=== PATIENT | male | born 1955 | race African-American/Black ===

== ENCOUNTER 2024-07-29 09:35 | Inpatient (IN) | payer OTHER ==
[2024-07-28 20:00] VITALS: PULSE 101; RESP 20; O2SAT 94
[2024-07-29] VITALS (8 sets, daily range): BP systolic 132–136; BP diastolic 73; PULSE 78–105; RESP 16–20; TEMP 98.1–98.3; O2SAT 94–100
[~2024-07-29] VITALS: Ht 172.7 cm; Wt 102.3 kg
--- NOTE | 2024-07-29 09:49 | ECG ---
[facility] Test Date: 2024-07-29 Test Time: 09:46:07 Pat Name: JOHANN ATKINSON Department: ER Room: 0245T Gender: M Internal Communications Specialist: CATARINO : 1955 Requested By: BEN PRINCE Order Number: [id number] Reading MD: Neil Deshpande Measurements Intervals Monitor Rate: 103 P: 91 NM: 172 QRS: 259 QRSD: 95 T: 46 QT: 368 QTc: 482 Interpretive Statements Sinus tachycardia Atrial premature complexes Probable left atrial enlargement LAD, consider left anterior fascicular block RSR' in V1 or V2, right VCD or RVH Borderline prolonged QT interval Electronically Signed On 08-03-2024 17:04:21 PST by Neil Deshpande Please click the below link to view image of tracing.
--- NOTE | 2024-07-29 09:58 | ED.PDOC ---
SOB-HPI HPI Comments 69-year-old male presents with a chief complaint of SOB x 2 days with associated weakness. Patient states that he has been feeling increasingly SOB for the past 2 days and states that he really feels like he cannot breathe when attempting to walk, even short distances. Patient mentions that his sister in law was sick x 1 week ago and believes that he may be becoming sick as well. Patient denies any chest pain at this time. Patient has an inhaler, but denies any relief from it. No other symptoms or modifying factors present at this time. Chief Complaint: Shortness of Breath Time Seen by MD: 09:50 Primary Care Provider: LUIS MANUEL Reviewed notes: Medications, Allergies Information Source: Patient Mode of Arrival: Ambulatory Severity: Moderate Timing: Days Duration: Since onset Context: At Rest, With Light Exertion PE Risk Factors: None History of: None Prehospital treatment: None Modifying Factors: Inhaler Past Medical History PAST MEDICAL HISTORY: Denies Surgical History: Denies all surgeries Family History Family History: Reviewed,noncontributory to illness Social History Smoker: Non-Smoker Alcohol: Denies ETOH Use Drugs: Denies Drug Use Lives In: Home Constitutional: denies: chills, diaphoresis, fatigue, fever, malaise, sweats, weakness, others EENTM: denies: blurred vision, double vision, ear bleeding, ear discharge, ear drainage, ear pain, ear ringing, eye pain, eye redness, hearing loss, mouth pain, mouth swelling, nasal discharge, nose bleeding, nose congestion, nose pain, photophobia, tearing, throat pain, throat swelling, voice changes, others Respiratory: reports: shortness of breath, SOB with excertion; denies: cough, hemoptysis, orthopnea, SOB at rest, stridor, wheezing, others Cardiovascular: denies: chest pain, dizzy spells, diaphoresis, Dyspnea on exertion, edema, irregular heart beat, left arm pain, lightheadedness, palpitations, PND, syncope, others Gastrointestinal: denies: abdomen distended, abdominal pain, blood streaked bowels, constipated, diarrhea, dysphagia, difficulty swallowing, hematemesis, melena, nausea, poor appetite, poor fluid intake, rectal bleeding, rectal pain, vomiting, others Genitourinary: denies: burning, dysuria, flank pain, frequency, hematuria, incontinence, penile discharge, penile sore, pain, testicle pain, testicle swelling, urgency, others Neurological: denies: dizziness, fainting, headache, left sided numbness, left sided weakness, numbness, paresthesia, pre-existing deficit, right sided numbness, right sided weakness, seizure, speech problems, tingling, tremors, weakness, others Musculoskeletal: denies: back pain, gout, joint pain, joint swelling, muscle pain, muscle stiffness, neck pain, others Integumetry: denies: bruises, change in color, change in hair/nails, dryness, laceration, lesions, lumps, rash, wounds, others Allergic/Immunocompromised: denies: Difficulty Healing, Frequent Infections, Hives, Itching, others Hematologic/Lymphatic: denies: anemia, blood clots, easy bleeding, easy bruising, swollen glands, others Endocrine: denies: excessive hunger, excessive sweating, excessive thirst, excessive urination, flushing, intolerance to cold, intolerance to heat, unexplained weight gain, unexplained weight loss, others Psychiatric: denies: anxiety, bipolar disorder, depression, hopeless, panic disorder, schizophrenia, sleepless, suicidal, others All Other Systems: Reviewed and Negative Physical Exam General Appearance: Mild Distress, Normal HEENT: Normal ENT Inspection, Pharynx Normal, TMs Normal Neck: Full Range of Motion, Non-Tender, Normal, Normal Inspection Respiratory: Chest Non-Tender, Lungs Clear, No Accessory Muscle Use, No Respiratory Distress, Normal Breath Sounds Cardiovascular: No Edema, No JVD, No Murmur, No Gallop, Normal Peripheral Pulses, Regular Rate/Rhythm Breast Exam: Deferred Gastrointestinal: No Organomegaly, Non Tender, No Pulsatile Mass, Normal Bowel Sounds, Soft Genitalia: Deferred Pelvic: Deferred Rectal: Deferred Extremities: No calf tenderness, Normal capillary refill, Normal inspection, Normal range of motion, Non-tender, No pedal edema Musculoskeletal : Apperance: Normal Neurologic: Alert, creative services specialist II-XII nml as Tested, No Motor Deficits, Normal Affect, Normal Mood, No Sensory Deficits Cerebellar Function: Normal Reflexes: Normal Skin: Dry, Normal Color, Warm Lymphatic: No Adenopathy Was a procedure done? Was a procedure done?: No Differential Dx Differential Diagnosis: Bronchitis, Cardiogenic Shock, CHF, COPD, Pneumonia, Sinusitis, URI X-Ray, Labs, Meds, VS Vital Signs Date Time Temp Pulse Resp B/P (MAP) Pulse Ox O2 Delivery O2 Flow Rate FiO2 07/29/24 10:30 102 07/29/24 10:27 105 16 94 Room Air* 0 21 07/29/24 10:18 22 95 Room Air* 0 21 21 07/29/24 10:05 97.5 110 22 140/95 (110) 89 97.5 07/29/24 09:46 103 07/29/24 09:43 97.6 108 16 173/98 (123) 94 Lab Test 07/29/24 10:13 Range/Units White Blood Count 7.5 4.4-10.8 10^3/uL Red Blood Count 4.99 4.5-5.90 10^6/uL Hemoglobin 14.8 13.5-17.5 g/dL Hematocrit 45.6 41.0-53.0 % Mean Corpuscular Volume 91.3 80.0-100.0 fL Mean Corpuscular Hemoglobin 29.6 28.0-32.0 pg Mean Corpuscular Hemoglobin Concent 32.4 32.0-36.0 g/dL Red Cell Distribution Width 14.5 H 11.8-14.3 % Platelet Count 152 140-450 10^3/uL Mean Platelet Volume 9.8 6.9-10.8 fL Neutrophils (%) (Auto) 56.8 37.0-80.0 % Lymphocytes (%) (Auto) 30.2 10.0-50.0 % Monocytes (%) (Auto) 11.6 0.0-12.0 % Eosinophils (%) (Auto) 0.7 0.0-7.0 % Basophils (%) (Auto) 0.7 0.0-2.0 % Neutrophils # (Auto) 4.3 1.6-8.6 10 ^3/uL Lymphocytes # (Auto) 2.3 0.4-5.4 10 ^3/uL Monocytes # (Auto) 0.9 0-1.3 10 ^3/uL Eosinophils # (Auto) 0 0-0.8 10 ^3/uL Basophils # (Auto) 0 0-0.2 10 ^3/uL Nucleated Red Blood Cells 0.1 % Sodium Level 140 136-145 mmol/L Potassium Level 3.9 3.5-5.1 mmol/L Chloride Level 104 98-107 mmol/L Carbon Dioxide Level 26 20-31 mmol/L Anion Gap 10 5-15 Blood Urea Nitrogen 17 9-23 mg/dL Creatinine 1.03 0.700-1.30 mg/dL Glomerular Filtration Rate Calc 79 >90 mL/min BUN/Creatinine Ratio 16.5 10.0-20.0 Serum Glucose 208 H 74-106 mg/dL Calcium Level 9.6 8.7-10.4 mg/dL Troponin I High Sensitivity 67 *H </=54 ng/L B-Type Natriuretic Peptide 91.62 0-100 pg/mL Current Medications Medications (Trade) Dose Ordered Sig/Deon Route Start Time Stop Time Status Last Admin Albuterol (Ventolin Medneb) 5 mg ONCE ONCE NEB 07/29/24 10:00 07/29/24 10:01 DC 07/29/24 10:15 Ipratropium Start (Atrovent Medneb) 0.5 mg ONCE ONCE NEB 07/29/24 10:00 07/29/24 10:01 DC 07/29/24 10:15 Methylprednisolone Sodium Succinate (Solu Medrol) 62.5 mg ONCE ONCE IV 07/29/24 10:00 07/29/24 10:01 DC 07/29/24 10:12 Azithromycin (Zithromax Tablet) 500 mg ONCE ONCE PO 07/29/24 10:00 07/29/24 10:01 DC 07/29/24 10:05 Time of 1ST Reevaluation: 10:20 Reevaluation 1ST: Unchanged Patient Education/Counseling: Diagnosis, Treatment, Prognosis Family Education/Counseling: Diagnosis, Treatment, Prognosis Departure 1 Departure Time of Disposition: 11:16 (Patient presented with acute shortness of breath concerning for acute on chronic COPD Exacerbation, Pneumonia, ACS, CHF, Pneumothorax. Less likely PE, Dissection. Data: 1. I ordered and reviewed the result of at least 3 labs including a CBC, BMP, and Troponin. 2. I independently interpreted the following tests: Chest X-ray shows a likely pneumonia .Risk:This patient has a high risk of morbidity due to further diagnostic testing or treatment and may suffer from respiratory or cardiac etiology . Workup reveals a likely COPD Exacerbation and pneumonia and patient should be admitted for further workup. and possible expert consultation.Patient does not appear septic. Patient does have component of mild volume overload and we will not give a full fluid bolus) Impression: Primary Impression: Pneumonia Qualified Codes: J18.9 - Pneumonia, unspecified organism Additional Impressions: Acute and chronic respiratory failure Shortness of breath COPD (chronic obstructive pulmonary disease) Qualified Codes: J44.1 - Chronic obstructive pulmonary disease with (acute) exacerbation Disposition: 09 ADMITTED INPATIENT Admit to: Med Surg Condition: Serious Critical Care Note Critical Care Time?: Yes Critical care comment: Acute shortness of breath Authorized and Performed by: Ben Ricardo MD Total critical care time: Approximately 36 minutes Due to a high probability of clinically significant, life threatening deterioration, the patient required my highest level of preparedness to intervene emergently and I personally spent this critical care time directly and personally managing the patient. This critical care time included obtaining a history; examining the patient; pulse oximetry; ordering and review of studies; arranging urgent treatment with development of a management plan; evaluation of patient's response to treatment; frequent reassessment; and, discussions with other providers. This critical care time was performed to assess and manage the high probability of imminent, life-threatening deterioration that could result in multi-organ failure. It was exclusive of separately billable procedures and treating other patients and teaching time. Please see my other sections and the rest of the note for further information on patient assessment and treatment. Stability Stability form required: No Heart Score Heart Score: Heart Score Response (Comments) Value History Slightly Suspicious 0 EKG Repolarization Disturb 1 Age >65 2 Risk Factors >3 or Hx ASHD 2 Troponin 1-2 x's Normal limit 1 Total 6 I personally scribed for BEN RICARDO MD ([email or web address]) on 07/29/24 at 09:58. Electronically submitted by Hernando Snow ([email or web address]). BEN RICARDO MD Jul 29, 2024 09:58
[2024-07-29] MEDS: AZITHROMYCIN 250 MG TAB PO ONE (10:05)
--- NOTE | 2024-07-29 10:08 | DVH ---
XY CHEST TWO VIEWS ROUTINE CLINICAL HISTORY: SOB COMPARISON: None TECHNIQUE: Frontal and lateral view of the chest was obtained FINDINGS: Lines and Tubes: None Lungs: Mild bilateral opacities. Pleura: No effusion. No pneumothorax. Cardiomediastinal contours: Unremarkable Bones: No acute osseous abnormality. IMPRESSION: 1. Mild bilateral opacities which may reflect pneumonia in the appropriate clinical setting.
[2024-07-29] MEDS: methylPREDNISolone SOD SUCC 125 MG/2 ML VL IV ONE (10:12)
[2024-07-29] MEDS: IPRATROPIUM BROM 0.5 MG/2.5ML INH SOL NEB ONE (10:15)
[2024-07-29] MEDS: ALBUTEROL SULF 2.5 MG/0.5ML(0.5%) NEB SOLN NEB ONE (10:15)
[2024-07-29 10:21] LABS: Basophils # (auto) 0 10 ^3/uL (0-0.2); Basophils % (auto) 0.7 % (0.0-2.0); Eosinophils # (auto) 0 10 ^3/uL (0-0.8); Eosinophils % (auto) 0.7 % (0.0-7.0); Hematocrit 45.6 % (41.0-53.0); Hemoglobin 14.8 g/dL (13.5-17.5); Lymphocytes # (auto) 2.3 10 ^3/uL (0.4-5.4); Lymphocytes % (auto) 30.2 % (10.0-50.0); Mean Corpuscular Hemoglobin 29.6 pg (28.0-32.0); Mean Corpuscular Hgb Conc. 32.4 g/dL (32.0-36.0); Mean Corpuscular Volume 91.3 fL (80.0-100.0); Monocytes # (auto) 0.9 10 ^3/uL (0-1.3); Monocytes % (auto) 11.6 % (0.0-12.0); Neutrophils # (auto) 4.3 10 ^3/uL (1.6-8.6); Neutrophils % (auto) 56.8 % (37.0-80.0); Nucleated Red Blood Cells % 0.1 %; Platelet Count (auto) 152 10^3/uL (140-450); Red Blood Cells 4.99 10^6/uL (4.5-5.90); Red Cell Distribution Width 14.5 % (11.8-14.3); White Blood Cell 7.5 10^3/uL (4.4-10.8)
[2024-07-29 10:37] LABS: Chloride 104 mmol/L (98-107); Potassium 3.9 mmol/L (3.5-5.1); Sodium 140 mmol/L (136-145)
[2024-07-29 10:38] LABS: Anion Gap 10 (5-15); Calcium 9.6 mg/dL (8.7-10.4); Carbon Dioxide 26 mmol/L (20-31)
[2024-07-29 10:43] LABS: BUN/Creatinine Ratio 16.5 (10.0-20.0); Blood Urea Nitrogen 17 mg/dL (9-23)
[2024-07-29 10:51] LABS: Glucose 208 mg/dL (74-106)
[2024-07-29] MEDS: ACETAMINOPHEN 325 MG TAB PO ONE (11:15)
[2024-07-29] MEDS: ONDANSETRON HCL 4 MG/2 ML VIAL IV ONE (11:15)
[2024-07-29] MEDS: SODIUM CHLORIDE 0.9% 1,000 ML IV ONE (11:31)
[2024-07-29] MEDS: VANCOMYCIN 1GM/250ML KIT 200 ML IV ONE (11:36)
[2024-07-29] MEDS: CEFEPIME 2GM/50ML NS 50 ML IV ONE (13:41)
[2024-07-29] MEDS ORDERED: HYDROcodone-ACET 5/325MG TAB PO PRN (14:15)
[2024-07-29] MEDS ORDERED: NITROGLYCERIN 0.4 MG SL TAB SL PRN (14:15)
[2024-07-29] MEDS ORDERED: ONDANSETRON HCL 4 MG/2 ML VIAL IV PRN (14:15)
[2024-07-29] MEDS ORDERED: DEXTROSE (50%) 50ML SYRG IV PRN (14:15)
[2024-07-29] MEDS ORDERED: MORPHINE SULFATE INJ 2 MG/ml SYRG IV PRN (14:15)
[2024-07-29] MEDS ORDERED: ACETAMINOPHEN 325 MG TAB PO PRN (14:15)
[2024-07-29] MEDS ORDERED: DOCUSATE SOD 100 MG CAP PO PRN (14:15)
--- NOTE | 2024-07-29 14:32 | DVHHP2 ---
History of Present Illness Reason for Visit: Shortness of breath History of Present Illness Jame Damico is a 69-year-old male with past medical history of hypertension, hyperlipidemia, gout, COPD, asthma, and diabetes, who came to the hospital due to shortness of breath. Patient states he is here visiting his mother from out of state. He started getting short of breath with a productive cough about 2-3 days ago. His symptoms continued to worsen over the last few days prompting him to come to the ER. He states his sleeping last night was difficult due to the shortness of breath. Patient states he has COPD or asthma, he isn't sure which one. He has a rescue inhaler he uses, but no daily medications/inhalers, and no home oxygen. Cardiovascular: HTN, hyperipidemia Pulmonary: Asthma, COPD Rheumatologic: Gout Endocrine: Diabetes Past Surgical History: Hernia Repair, Other (left ankle), Tonsillectomy Smoke: 1 pack per day ALCOHOL: occassional Drugs: None Lives: Alone Domestic Violence: Neg Review of Systems Constitutional: No: Fever, Chills, Sweats, Weakness, Malaise, Other Eyes: No: Pain, Vision change, Conjunctivae inflammation, Eyelid inflammation, Other, Redness ENT: No: Ear pain, Ear discharge, Nose pain, Nose discharge, Nose congestion, Mouth pain, Mouth swelling, Throat pain, Throat swelling, Other Respiratory: Cough, Shortness of breath, SOB with excertion, Wheezing, Sputum; No: Dry, Hemoptysis, Pleuritic Pain, Wheezing, Other Cardiovascular: No: Chest Pain, Palpitations, Orthopnea, Paroxysmal Noc. Dyspnea, Edema, Lt Headedness, Other Gastrointestinal: No: Nausea, Vomiting, Abdominal Pain, Diarrhea, Constipation, Melena, Hematochezia, Other Genitourinary: No Dysuria, No Frequency, No Incontinence, No Hematuria, No Retention, No Other Musculoskeletal: No: other, neck pain, shoulder pain, arm pain, back pain, hand pain, leg pain, foot pain Skin: No: Rash, Lesions, Jaundice, Bruising, Other Neurological: No: Weakness, Numbness, Incoordination, Change in speech, Confusion, Seizures, Other Allergies: Coded Allergies: NO KNOWN ALLERGIES (Unverified , 07/29/24) Exam Vital Signs Vital Signs Date Time Temp Pulse Resp B/P (MAP) Pulse Ox O2 Delivery O2 Flow Rate FiO2 07/29/24 13:00 97 27 134/77 (96) 96 07/29/24 10:27 Room Air* 0 21 07/29/24 10:05 97.5 97.5 General Appearance: Alert, Oriented X3, Cooperative, moderate distress HEENT: Atraumatic, PERRLA, Mucous membr. moist/pink Respiratory: Clear to auscultation, Other (bilateral wheezing) Cardiovascular: Regular rate, Normal S1, Normal S2, No murmurs Abdominal: Normal bowel sounds, Soft, No tenderness, No hepatospenomegaly Extremities: No clubbing, No cyanosis, No edema, Normal pulses Skin: No rashes, No breakdown, No significant lesion Neuro: Normal gait, Normal speech, Strength at 5/5 X4 ext Psych/Mental Status: Mental status NL, Mood NL Labs/Xrays Labs Test 07/29/24 13:51 07/29/24 11:23 07/29/24 10:13 Range/Units Lactic Acid Level 1.4 0.4-2.0 mmol/L White Blood Count 7.5 4.4-10.8 10^3/uL Red Blood Count 4.99 4.5-5.90 10^6/uL Hemoglobin 14.8 13.5-17.5 g/dL Hematocrit 45.6 41.0-53.0 % Mean Corpuscular Volume 91.3 80.0-100.0 fL Mean Corpuscular Hemoglobin 29.6 28.0-32.0 pg Mean Corpuscular Hemoglobin Concent 32.4 32.0-36.0 g/dL Red Cell Distribution Width 14.5 H 11.8-14.3 % Platelet Count 152 140-450 10^3/uL Mean Platelet Volume 9.8 6.9-10.8 fL Neutrophils (%) (Auto) 56.8 37.0-80.0 % Lymphocytes (%) (Auto) 30.2 10.0-50.0 % Monocytes (%) (Auto) 11.6 0.0-12.0 % Eosinophils (%) (Auto) 0.7 0.0-7.0 % Basophils (%) (Auto) 0.7 0.0-2.0 % Neutrophils # (Auto) 4.3 1.6-8.6 10 ^3/uL Lymphocytes # (Auto) 2.3 0.4-5.4 10 ^3/uL Monocytes # (Auto) 0.9 0-1.3 10 ^3/uL Eosinophils # (Auto) 0 0-0.8 10 ^3/uL Basophils # (Auto) 0 0-0.2 10 ^3/uL Nucleated Red Blood Cells 0.1 % Sodium Level 140 136-145 mmol/L Potassium Level 3.9 3.5-5.1 mmol/L Chloride Level 104 98-107 mmol/L Carbon Dioxide Level 26 20-31 mmol/L Anion Gap 10 5-15 Blood Urea Nitrogen 17 9-23 mg/dL Creatinine 1.03 0.700-1.30 mg/dL Glomerular Filtration Rate Calc 79 >90 mL/min BUN/Creatinine Ratio 16.5 10.0-20.0 Serum Glucose 208 H 74-106 mg/dL Calcium Level 9.6 8.7-10.4 mg/dL B-Type Natriuretic Peptide 91.62 0-100 pg/mL XY CHEST TWO VIEWS ROUTINE FINDINGS: Lines and Tubes: None Lungs: Mild bilateral opacities. Pleura: No effusion. No pneumothorax. Cardiomediastinal contours: Unremarkable Bones: No acute osseous abnormality. IMPRESSION: 1. Mild bilateral opacities which may reflect pneumonia in the appropriate clinical setting. Assessment/Plan Assessment/Plan Assessment: Pneumonia, COPD, Uncontrolled diabetes, Hypertension, Hyperlipidemia, Gout, Plan: Admit to Tele, IV antibiotics, IV steroids, Breathing treatments, Supplemental oxygen as needed, A1c, Home medications reconciled, Plan discussed with: Patient My Orders Orders - TJ JONES ROLL BUCKER Procedure Category Date Status Time Admit ADMIT 07/29/24 Transmitted 14:06 Code Status CODE 07/29/24 Transmitted 14:06 Sodium Chloride Lock PHA 07/29/24 Transmitted (Saline Lock Ns) 22:00 Docusate Sodium PHA 07/29/24 Transmitted Capsule (Colace 14:15 Complete Blood Count LAB 07/30/24 Verified 04:00 Comprehensive LAB 07/30/24 Verified Metabolic Panel 04:00 Cardiac DIET 07/29/24 Transmitted Diet-2gna,Lofat,Lochol Dinner Condition: Serious MARY 07/29/24 Transmitted 14:06 Acetaminophen Tablet PHA 07/29/24 Transmitted (Tylenol Tablet) 14:15 Nitroglycerin PHA 07/29/24 Transmitted Sublingual (Ntrostat 14:15 Morphine Sulfate PHA 07/29/24 Transmitted Injection 14:15 Stat Ekg For Chest MARY 07/29/24 Transmitted Pain 14:06 Notify Md Of Changes MARY 07/29/24 Transmitted From Base 14:06 Staff Climate Scientist For [facility] 07/29/24 Transmitted 24 Hours 14:06 Emergency Dysrhythmia [facility] 07/29/24 Transmitted Protocol 14:06 Rhythm Strips Once MARY 07/29/24 Transmitted Every Shift 14:06 Oxygen By Nasal RT 07/29/24 Transmitted Cannula 14:06 Covid19 Antigen Yasemin LAB 07/29/24 Transmitted Rapid Influenza A&B LAB 07/29/24 Transmitted 14:06 Azithromycin 500mg/ PHA 07/30/24 Transmitted 250ml (Zithromax 50 10:00 Methylprednisolone PHA 07/29/24 Transmitted Sod Succ (Solu Medrol 22:00 Ipratropium Medneb PHA 07/29/24 Transmitted (Atrovent Medneb) 18:00 Albuterol Medneb PHA 07/29/24 Transmitted (Ventolin Medneb) 18:00 Ceftriaxone Ivpb PHA 07/30/24 Transmitted Rocephin 09:00 Hydrocodone-Acet PHA 07/29/24 Transmitted 5/325mg Tab ([place] 14:15 Ondansetron Hcl PHA 07/29/24 Transmitted (Zofran) 14:15 Date of Service: Jul 29, 2024 Billing Provider: TJ JONES Common Visit Codes: [id number] INP/OBS CARE (MOD) TJ JONES Jul 29, 2024 14:32
[2024-07-29 15:21] LABS: Rapid Influenza A Negative (Negative); Rapid Influenza B Negative (Negative)
[2024-07-29 15:22] LABS: COVID19 ANTIGEN SOFIA FIA NEGATIVE (NEGATIVE)
[2024-07-29] MEDS ORDERED: FLUT1AER5 PO (15:39)
[2024-07-29] MEDS ORDERED: FURO40TA4 PO (15:39)
[2024-07-29] MEDS ORDERED: METF750T54 PO (15:39)
[2024-07-29] MEDS ORDERED: METO25TA93 PO (15:39)
[2024-07-29] MEDS ORDERED: AMLO1TAB23 PO (15:39)
[2024-07-29] MEDS ORDERED: ALLO100T PO (15:39)
[2024-07-29] MEDS ORDERED: ATOR40TA52 PO (15:39)
[2024-07-29] MEDS: ACCU-CHEK COMFORT CURVE STRIP VI SCH (17:00)
[2024-07-29] MEDS: InsuLIN REG 1unit/0.01ml Soln (100units/ml) SC SCH ×2 (17:41→22:37)
[2024-07-29] MEDS: IPRATROPIUM BROM 0.5 MG/2.5ML INH SOL NEB SCH (17:54)
[2024-07-29] MEDS: ALBUTEROL SULF 2.5 MG/0.5ML(0.5%) NEB SOLN NEB SCH (17:54)
[2024-07-29] MEDS: SODIUM CHLOR 0.9% PF (SALINE LOCK) 10ML VIAL/SYR IV SCH (22:26)
[2024-07-29] MEDS: methylPREDNISolone SOD SUCC 40 MG/ML VL IV SCH (22:26)
[2024-07-29] MEDS: FLUTICASONE SALMETEROL PO SCH (22:28)
[2024-07-29] MEDS: ATORVASTATIN 20 MG TAB PO SCH (22:29)
[2024-07-30] VITALS (15 sets, daily range): BP systolic 123–149; BP diastolic 70–81; PULSE 78–143; RESP 17–20; TEMP 97.4–97.8; O2SAT 90–100
[2024-07-30 06:47] LABS: Alanine Aminotransferase 25 U/L (7-40); Albumin 4.3 g/dL (3.2-4.8); Alkaline Phosphatase 79 U/L (46-116); Anion Gap 9 (5-15); BUN/Creatinine Ratio 15.6 (10.0-20.0); Blood Urea Nitrogen 15 mg/dL (9-23); Calcium 9.6 mg/dL (8.7-10.4); Carbon Dioxide 25 mmol/L (20-31); Chloride 105 mmol/L (98-107); Potassium 4.6 mmol/L (3.5-5.1); Sodium 139 mmol/L (136-145)
[2024-07-30 06:48] LABS: Bilirubin, Total 0.6 mg/dL (0.2-1.0); Total Protein 6.9 g/dL (5.7-8.2)
[2024-07-30 06:55] LABS: Aspartate Aminotransferase 11 U/L (13-40); Glucose 257 mg/dL (74-106)
[2024-07-30 07:01] LABS: Basophils # (auto) 0 10 ^3/uL (0-0.2); Basophils % (auto) 0.1 % (0.0-2.0); Eosinophils # (auto) 0 10 ^3/uL (0-0.8); Hematocrit 41.6 % (41.0-53.0); Hemoglobin 13.6 g/dL (13.5-17.5); Lymphocytes # (auto) 1.1 10 ^3/uL (0.4-5.4); Lymphocytes % (auto) 11.4 % (10.0-50.0); Mean Corpuscular Hemoglobin 30.2 pg (28.0-32.0); Mean Corpuscular Hgb Conc. 32.7 g/dL (32.0-36.0); Mean Corpuscular Volume 92.4 fL (80.0-100.0); Monocytes # (auto) 0.4 10 ^3/uL (0-1.3); Monocytes % (auto) 4.4 % (0.0-12.0); Neutrophils % (auto) 84.1 % (37.0-80.0); Platelet Count (auto) 151 10^3/uL (140-450); White Blood Cell 9.5 10^3/uL (4.4-10.8)
[2024-07-30] MEDS: cefTRIAXone 1GM/50ML D5W 50 ML IV SCH (09:43)
[2024-07-30] MEDS: FUROSEMIDE 40 MG TAB PO SCH (09:44)
[2024-07-30] MEDS: ALLOPURINOL 100 MG TAB PO SCH (09:44)
[2024-07-30] MEDS: METOPROLOL SUCCINATE XL 50 MG TAB PO SCH (09:47)
[2024-07-30] MEDS: amLODIPine BESYLATE 5 MG TAB PO SCH (09:48)
[2024-07-30] MEDS: AZITHROMYCIN 500MG/ 250ML 250 ML IV SCH (10:42)
--- NOTE | 2024-07-30 14:44 | DVHPN2 ---
Subjective 69-year-old male with a history of hypertension, dyslipidemia, type 2 diabetes came with a chief complaint of few more days of cough and shortness of breaths He is heavy smoker he smoked for 40 years of 1 at least 1 pack a day He is not aware that he has COPD He does not use oxygen at home He had a run of ventricular tachycardia this morning Changes from previous H/P or p: Changes Eyes: No Pain, No Vision change, No Conjunctivae inflammation, No Eyelid inflammation, No Other, No Redness ENT: No Ear pain, No Ear discharge, No Nose pain, No Nose discharge, No Nose congestion, No Mouth pain, No Mouth swelling, No Throat pain, No Throat swelling, No Other Cardiovascular: No Chest Pain, No Palpitations, No Orthopnea, No Paroxysmal Noc. Dyspnea, No Edema, No Lt Headedness, No Other Respiratory: Cough; No Dry; Shortness of breath, SOB with excertion, Wheezing; No Hemoptysis, No Pleuritic Pain; Sputum; No Other Gastrointestinal: No Nausea, No Vomiting, No Abdominal Pain, No Diarrhea, No Constipation, No Melena, No Hematochezia, No Other Genitourinary: No Dysuria, No Frequency, No Incontinence, No Hematuria, No Retention, No Other Musculoskeletal: No other, No neck pain, No shoulder pain, No arm pain, No back pain, No hand pain, No leg pain, No foot pain Skin: No Rash, No Lesions, No Jaundice, No Bruising, No Other Objective Vitals Vital Signs Date Time Temp Pulse Resp B/P (MAP) Pulse Ox O2 Delivery O2 Flow Rate FiO2 07/30/24 13:08 99 19 90 07/30/24 13:02 Nasal Cannula* 3 32 07/30/24 09:48 129/70 07/30/24 09:21 97.6 97.6 Intake/Output Intake and Output 07/30/24 07:00 Intake Total 800 ml Balance 800 ml Intake Oral 800 ml Blood Product 0 ml # Voids 1 General Appearance: Alert, Oriented X3, Cooperative, moderate distress Lungs: Other (Diffuse wheezing bilaterally) Cardiovascular: Regular rate, Normal S1, Normal S2 Abdomen: Normal bowel sounds, Soft, No tenderness Extremities: No edema Medications Current Medications Medications Dose Ordered Sig/Deon Route Start Time Stop Time Status Last Admin Dose Admin Sodium Chloride 10 ml Q8HR IV 07/29/24 22:00 07/30/24 06:30 10 ML Acetaminophen/ Hydrocodone Bitart 1 tab Q4HP PRN PO 07/29/24 14:15 Ondansetron HCl 4 mg Q4HP PRN IV 07/29/24 14:15 Docusate Sodium 100 mg BIDPRN PRN PO 07/29/24 14:15 Acetaminophen 650 mg Q6HP PRN PO 07/29/24 14:15 Nitroglycerin 0.4 mg Q5MINP PRN SL 07/29/24 14:15 Morphine Sulfate 2 mg Q30M PRN IV 07/29/24 14:15 Azithromycin 250 ml @ 125 mls/hr DAILY IV 07/30/24 10:00 07/30/24 10:42 125 MLS/HR Methylprednisolone Sodium Succinate 40 mg BID IV 07/29/24 22:00 07/30/24 09:43 40 MG Ipratropium [place] 0.5 mg Q6HWA NEB 07/29/24 18:00 07/30/24 13:02 0.5 MG Albuterol 2.5 mg Q6HWA NEB 07/29/24 18:00 07/30/24 13:02 2.5 MG Ceftriaxone Sodium 50 ml @ 100 mls/hr DAILY@09 IV 07/30/24 09:00 07/30/24 09:43 100 MLS/HR Diagnostic Test (Pha) 1 strip ACHS 07/29/24 17:00 07/30/24 12:37 1 STRIP Insulin Human Regular HS SC 07/29/24 22:00 07/29/24 22:37 8 UNITS Insulin Human Regular AC SC 07/29/24 17:00 07/30/24 12:40 9 UNITS Dextrose 50 ml UD PRN IV 07/29/24 14:15 Allopurinol 100 mg DAILY PO 07/30/24 10:00 07/30/24 09:44 100 MG Furosemide 40 mg DAILY PO 07/30/24 10:00 07/30/24 09:44 40 MG Amlodipine Besylate 10 mg DAILY PO 07/30/24 10:00 07/30/24 09:48 10 MG Atorvastatin Calcium 40 mg HS PO 07/29/24 22:00 07/29/24 22:29 40 MG Patient Own Medication 1 puff BID PO 07/29/24 22:00 07/30/24 09:44 1 PUFF Metoprolol Succinate 25 mg DAILY PO 07/30/24 10:00 07/30/24 09:47 25 MG Laboratory Results Laboratory Tests 07/30/24 05:42 Chemistry Test 07/30/24 05:42 Albumin 4.3 g/dL (3.2-4.8) Calcium Level 9.6 mg/dL (8.7-10.4) Magnesium Level 2.1 mg/dL (1.6-2.6) Total Protein 6.9 g/dL (5.7-8.2) LFT Test 07/30/24 05:42 Alanine Aminotransferase (ALT) 25 U/L (7-40) Alkaline Phosphatase 79 U/L (46-116) Aspartate Amino Transferase (AST) 11 U/L (13-40) L Total Bilirubin 0.6 mg/dL (0.2-1.0) HgA1c, TSH Test 07/30/24 05:42 Hemoglobin A1c 8.7 % A1C (<5.7) H Microbiology Microbiology Date/Time Source Procedure Growth Status 07/29/24 11:23 Blood Blood Culture - Preliminary NO GROWTH AFTER 24 HOURS OF INCUBATION. Resulted Assessment/Plan Assessment/Plan Acute hypoxic respiratory failure COPD exacerbation Bilateral pneumonia Hypertension Type 2 diabetes Obesity COPD Mixed hyperlipidemia Ventricular tachycardia Plan Oxygen Med neb treatments IV antibiotics IV steroids Sputum culture Resume the home medications Amlodipine Lipitor Metoprolol Cardiology consult Echocardiogram Lasix Monitor closely Full code Advance directives and plan of care discussed for 15 minute Plan discussed with: Patient Date of Service: Jul 30, 2024 Billing Provider: RODRI CHAN MD Common Visit Codes: [id number] INP/OBS CARE(HIGH) Secondary Visit Codes: [id number] CARE PLAN 30 MINUTES RODRI CHAN MD Jul 30, 2024 14:44
--- NOTE | 2024-07-30 17:29 | DVHCONRES ---
Date Seen: Jul 30, 2024 Resident Creating Document: TALIA MORSE RESIDENT Referring Physician Dr. Daly Reason for Consultation Ventricular tachycardia History of Present Illness This is a 69-year-old male who comes into the ED with chief complain of shortnes s of breath. He has a past medical history relevant for hypertension, hyperlipidemia, gout, COPD, asthma, diabetes. Surgical history: Hernia repair, left ankle surgery, tonsillectomy Social history: Smokes one pack per day, alcohol denied, denies illicit drug use. Patient stated that for last couple of days he has experiencing worsening shortness of breath, positive cough, he is here visiting from [place]. He stated that he has been very fatigued. He denies any chest pain, dizziness, lightheadedness, abdominal pain, nausea, vomiting. On arrival to the ED, patient was administer breathing treatments, glucocorticoids, was started on broad-spectrum antibiotics, close given IV fluids, chest x-ray demonstrated pneumonia. Troponins are 67-56-60. BNP is 91. EKG shows a rate of 103, sinus tachycardia, extreme axis deviation, no ST-T changes, PACs. We had the consulted today because around 20 him to the patient was receiving a breathing treatment on during that time was noted on his telemetry that his hear t rate went up to the 130s 140s and he had an episode of 8 seconds of ventricular tachycardia. Patient denied any dizziness, lightheadedness, shortness for breath, chest pain or any other associated symptoms what he was having this event. Nurse was at bedside at the time and also denied any of the aforementioned symptoms. On my assessment, patient states feeling well, states significant improvement from admission, he is still on nasal cannula at 3 L, saturating well above 92%, heart rate was in the 80s, BP was 137/80. Family History: Diabetes mellitus G8 MOTHER Hypertension G8 MOTHER Allergies: Coded Allergies: NO KNOWN ALLERGIES (Unverified , 07/29/24) Home Meds Reported Medications Metformin Hydrochloride (Metformin Hcl Er) 750 Mg Tab, 2 TAB PO DAILY 07/29/24 Fluticasone-Salmeterol (Wixela Inhub 100-50 Mcg/Dose) 1 Aer Aer, 1 PUFF PO BID 07/29/24 Metoprolol Succinate (Metoprolol Succinate Er) 25 Mg Tab, 1 TAB PO DAILY 07/29/24 Atorvastatin Calcium (ATORVASTATIN CALCIUM) 40 Mg Tab, 1 TAB PO DAILY 07/29/24 Furosemide (Furosemide) 40 Mg Tab, 1 TAB PO DAILY 07/29/24 Amlodipine Besylate (Amlodipine Besylate) 10 Mg Tab, 1 TAB PO DAILY 07/29/24 Allopurinol (Allopurinol) 100 Mg Tab, 1 TAB PO DAILY 07/29/24 Current Medications Current Medications Medications (Trade) Dose Ordered Sig/Deon Route PRN Reason Start Time Stop Time Status Last Admin Sodium Chloride (Saline Lock Ns) 10 ml Q8HR IV 07/29/24 22:00 07/30/24 16:56 Azithromycin 250 ml @ 125 mls/hr DAILY IV 07/30/24 10:00 07/30/24 10:42 Methylprednisolone Sodium Succinate (Solu Medrol) 40 mg BID IV 07/29/24 22:00 07/30/24 09:43 Ipratropium [place] (Atrovent Medneb) 0.5 mg Q6HWA NEB 07/29/24 18:00 07/30/24 13:02 Albuterol (Ventolin Medneb) 2.5 mg Q6HWA NEB 07/29/24 18:00 07/30/24 13:02 Ceftriaxone Sodium 50 ml @ 100 mls/hr DAILY@09 IV 07/30/24 09:00 07/30/24 09:43 Insulin Human Regular (InsuLIN R) HS SC 07/29/24 22:00 07/29/24 22:37 Allopurinol (Zyloprim Tablet) 100 mg DAILY PO 07/30/24 10:00 07/30/24 09:44 Furosemide (Lasix Tablet) 40 mg DAILY PO 07/30/24 10:00 07/30/24 09:44 Amlodipine Besylate (Norvasc Tablet) 10 mg DAILY PO 07/30/24 10:00 07/30/24 09:48 Atorvastatin Calcium (Lipitor) 40 mg HS PO 07/29/24 22:00 07/29/24 22:29 Patient Own Medication 1 puff BID PO 07/29/24 22:00 07/30/24 09:44 Metoprolol Succinate (Toprol Xl) 25 mg DAILY PO 07/30/24 10:00 07/30/24 09:47 Review of Systems Constitutional: Patient denies fevers, chills, sweats and weight changes. Eyes: Patient denies any visual symptoms. Ears, Nose, and Throat: No difficulties with hearing. No symptoms of rhinitis or sore throat. Cardiovascular: Patient denies chest pains, palpitations, orthopnea and paroxysmal nocturnal dyspnea. Respiratory: Shortness of breath and cough GI: No nausea, vomiting, diarrhea, constipation, abdominal pain, hematochezia or melena. : No urinary hesitancy or dribbling. No nocturia or urinary frequency. No abnormal urethral discharge. Musculoskeletal: No myalgias, arthralgias or edema. Neurologic: No chronic headaches, no seizures. Patient denies numbness, tingling or weakness. Psychiatric: Patient denies problems with mood disturbance. No problems with anxiety. Endocrine: No excessive urination or excessive thirst. Dermatologic: Patient denies any rashes or skin changes. Vital Signs Vital Signs Date Time Temp Pulse Resp B/P (MAP) Pulse Ox O2 Delivery O2 Flow Rate FiO2 07/30/24 15:31 97.5 80 19 137/79 (98) 97 97.5 07/30/24 13:02 Nasal Cannula* 3 32 Physical Exam General: Awake, alert, comfortable appearing, in no acute distress. HEENT: Head is normocephalic and atraumatic. Pupils are equal, round, and reactive to light. Extraocular muscles are intact. No nasal discharge. No facial trauma. Intraoral exam shows moist mucous membranes with no tonsillar enlargem ent or exudate. Neck: Supple with no cervical lymphadenopathy No meningismus. No goiter. Heart: Regular rate without murmur, rub, or gallop. Lungs: Bilateral scattered crackles, [id number] wheezing Abdomen: No external sign of injury. Bowel sounds are present. Abdomen is soft, nontender. No rebound, no guarding, no rigidity. There are no palpable masses. There is no flank pain on exam. Extremities: Strong peripheral pulses. There is no clubbing, no cyanosis, and no edema. Skin: No rash. Neurologic: Cranial nerves II-XII intact without motor, sensory, or cerebellar deficit, no asterixis. Labs/Diagnostic Data Labs Test 07/30/24 11:25 07/30/24 05:42 07/29/24 14:17 07/29/24 13:51 Range/Units POC Glucose 281 H 70-106 mg/dl White Blood Count 9.5 # 4.4-10.8 10^3/uL Red Blood Count 4.50 4.5-5.90 10^6/uL Hemoglobin 13.6 13.5-17.5 g/dL Hematocrit 41.6 41.0-53.0 % Mean Corpuscular Volume 92.4 80.0-100.0 fL Mean Corpuscular Hemoglobin 30.2 28.0-32.0 pg Mean Corpuscular Hemoglobin Concent 32.7 32.0-36.0 g/dL Red Cell Distribution Width 14.0 11.8-14.3 % Platelet Count 151 140-450 10^3/uL Mean Platelet Volume 10.2 6.9-10.8 fL Neutrophils (%) (Auto) 84.1 H 37.0-80.0 % Lymphocytes (%) (Auto) 11.4 10.0-50.0 % Monocytes (%) (Auto) 4.4 0.0-12.0 % Eosinophils (%) (Auto) 0.0 0.0-7.0 % Basophils (%) (Auto) 0.1 0.0-2.0 % Neutrophils # (Auto) 8.0 1.6-8.6 10 ^3/uL Lymphocytes # (Auto) 1.1 0.4-5.4 10 ^3/uL Monocytes # (Auto) 0.4 0-1.3 10 ^3/uL Eosinophils # (Auto) 0 0-0.8 10 ^3/uL Basophils # (Auto) 0 0-0.2 10 ^3/uL Nucleated Red Blood Cells 0.0 % Sodium Level 139 136-145 mmol/L Potassium Level 4.6 3.5-5.1 mmol/L Chloride Level 105 98-107 mmol/L Carbon Dioxide Level 25 20-31 mmol/L Anion Gap 9 5-15 Blood Urea Nitrogen 15 9-23 mg/dL Creatinine 0.96 0.700-1.30 mg/dL Glomerular Filtration Rate Calc 86 >90 mL/min BUN/Creatinine Ratio 15.6 10.0-20.0 Serum Glucose 257 H 74-106 mg/dL Hemoglobin A1c 8.7 H <5.7 % A1C Calcium Level 9.6 8.7-10.4 mg/dL Magnesium Level 2.1 1.6-2.6 mg/dL Total Bilirubin 0.6 0.2-1.0 mg/dL Aspartate Amino Transferase (AST) 11 L 13-40 U/L Alanine Aminotransferase (ALT) 25 7-40 U/L Alkaline Phosphatase 79 46-116 U/L Total Protein 6.9 5.7-8.2 g/dL Albumin 4.3 3.2-4.8 g/dL Influenza Type A Antigen Negative Negative Influenza Type B Antigen Negative Negative SARS-CoV-2 Antigen (Rapid) Negative NEGATIVE Troponin I High Sensitivity 60 *H </=54 ng/L Test 07/29/24 11:23 07/29/24 10:13 Range/Units Lactic Acid Level 1.4 0.4-2.0 mmol/L B-Type Natriuretic Peptide 91.62 0-100 pg/mL Microbiology Date/Time Source Procedure Growth Status 07/29/24 11:23 Blood Blood Culture - Preliminary NO GROWTH AFTER 24 HOURS OF INCUBATION. Resulted Assessment Nonsustained ventricular tachycardia, asymptomatic Prolonged QT Pneumonia, Gram-positive versus Gram-negative COPD exacerbation Acute hypoxic respiratory failure NSTEMI likely type 2 due to above Hypertension Type 2 diabetes Obesity Mixed dyslipidemia Plan/Recommendation Increase metoprolol to 50 mg p.o. q.d. Maintain potassium above 4 and magnesium above 2 Continue monitoring through telemetry Recommend switching albuterol for Xopenex Recommend switching azithromycin to doxycycline IV Pending echocardiogram Tight glucose control V-tach could be related to hypoxia, ischemia, or underlying structural heart disease, we will consider further cardiac work up depending on clinical course Case was discussed with Dr. Deshpande Plan discussed with: Patient TALIA MORSE RESIDENT Jul 30, 2024 17:29
[2024-07-30] MEDS: DOXYCYCLINE 100MG/100ML 100 ML IV SCH (21:52)
[2024-07-31] VITALS (15 sets, daily range): BP systolic 134–148; BP diastolic 73–91; PULSE 63–86; RESP 18–20; TEMP 97.3–97.9; O2SAT 91–100
[2024-07-31 06:26] LABS: LDL Cholesterol 97 mg/dL (< 100); Triglycerides 85 mg/dL (< 150)
[2024-07-31 06:27] LABS: HDL Cholesterol 40 mg/dL (40-59)
[2024-07-31 06:28] LABS: Cholesterol 155 mg/dL (< 200)
[2024-07-31] MEDS: LEVALBUTEROL HCL 1.25 MG/3 ML NEB NEB SCH (07:12)
[2024-07-31 09:23] LABS: Urine Bacteria None Seen /hpf (None Seen)
[2024-07-31 09:37] LABS: Urine Blood Negative /uL (Negative); Urine Clarity Clear (Clear); Urine Color Light-Yellow (Yellow); Urine Protein, UAD Negative (Negative); Urine Specific Gravity 1.017 (1.001-1.035); Urine Squamous Epithelial Cell None Seen /hpf (<5); Urine Urobilinogen Normal (Negative); Urine WBC < 1 /HPF (0-3); Urine pH 5.5 (5.0-9.0)
--- NOTE | 2024-07-31 09:56 | DVHPN2 ---
Subjective He is doing little better he says Cough is better He is still wheezing Changes from previous H/P or p: Changes Eyes: No Pain, No Vision change, No Conjunctivae inflammation, No Eyelid inflammation, No Other, No Redness ENT: No Ear pain, No Ear discharge, No Nose pain, No Nose discharge, No Nose congestion, No Mouth pain, No Mouth swelling, No Throat pain, No Throat swelling, No Other Cardiovascular: No Chest Pain, No Palpitations, No Orthopnea, No Paroxysmal Noc. Dyspnea, No Edema, No Lt Headedness, No Other Respiratory: Cough; No Dry; Shortness of breath, SOB with excertion, Wheezing; No Hemoptysis, No Pleuritic Pain; Sputum; No Other Gastrointestinal: No Nausea, No Vomiting, No Abdominal Pain, No Diarrhea, No Constipation, No Melena, No Hematochezia, No Other Genitourinary: No Dysuria, No Frequency, No Incontinence, No Hematuria, No Retention, No Other Musculoskeletal: No other, No neck pain, No shoulder pain, No arm pain, No back pain, No hand pain, No leg pain, No foot pain Skin: No Rash, No Lesions, No Jaundice, No Bruising, No Other Objective Vitals Vital Signs Date Time Temp Pulse Resp B/P (MAP) Pulse Ox O2 Delivery O2 Flow Rate FiO2 07/31/24 07:18 67 18 100 07/31/24 07:12 Nasal Cannula 2.0 07/31/24 07:12 28 07/31/24 05:00 97.6 148/91 (110) 97.6 Intake/Output Intake and Output 07/31/24 06:59 Intake Total 1800 ml Output Total 1150 ml Balance 650 ml Intake Oral 1400 ml IV Total 400 ml Output Urine Total 1150 ml # Voids 2 # Bowel Movements 1 General Appearance: Alert, Oriented X3, Cooperative, moderate distress Lungs: Other (Diffuse wheezing bilaterally) Cardiovascular: Regular rate, Normal S1, Normal S2 Abdomen: Normal bowel sounds, Soft, No tenderness Extremities: No edema Medications Current Medications Medications Dose Ordered Sig/Deon Route Start Time Stop Time Status Last Admin Dose Admin Sodium Chloride 10 ml Q8HR IV 07/29/24 22:00 07/31/24 06:21 10 ML Acetaminophen/ Hydrocodone Bitart 1 tab Q4HP PRN PO 07/29/24 14:15 Ondansetron HCl 4 mg Q4HP PRN IV 07/29/24 14:15 Docusate Sodium 100 mg BIDPRN PRN PO 07/29/24 14:15 Acetaminophen 650 mg Q6HP PRN PO 07/29/24 14:15 Nitroglycerin 0.4 mg Q5MINP PRN SL 07/29/24 14:15 Morphine Sulfate 2 mg Q30M PRN IV 07/29/24 14:15 Methylprednisolone Sodium Succinate 40 mg BID IV 07/29/24 22:00 07/30/24 21:53 40 MG Ipratropium [place] 0.5 mg Q6HWA NEB 07/29/24 18:00 07/31/24 07:12 0.5 MG Ceftriaxone Sodium 50 ml @ 100 mls/hr DAILY@09 IV 07/30/24 09:00 07/31/24 09:04 100 MLS/HR Diagnostic Test (Pha) 1 strip ACHS 07/29/24 17:00 07/31/24 06:20 1 STRIP Insulin Human Regular HS SC 07/29/24 22:00 07/30/24 22:15 8 UNITS Insulin Human Regular AC SC 07/29/24 17:00 07/31/24 06:13 9 UNITS Dextrose 50 ml UD PRN IV 07/29/24 14:15 Allopurinol 100 mg DAILY PO 07/30/24 10:00 07/30/24 09:44 100 MG Furosemide 40 mg DAILY PO 07/30/24 10:00 07/30/24 09:44 40 MG Amlodipine Besylate 10 mg DAILY PO 07/30/24 10:00 07/30/24 09:48 10 MG Atorvastatin Calcium 40 mg HS PO 07/29/24 22:00 07/30/24 21:53 40 MG Patient Own Medication 1 puff BID PO 07/29/24 22:00 07/30/24 21:54 1 PUFF Metoprolol Succinate 50 mg DAILY PO 07/31/24 10:00 Levalbuterol HCl 1.25 mg Q6HWA NEB 07/31/24 06:00 07/31/24 07:12 1.25 MG Doxycycline Hyclate 100 ml @ 50 mls/hr Q12H IV 07/31/24 10:00 Laboratory Results Laboratory Tests 07/30/24 05:42 Lipid panel Test 07/31/24 05:25 Cholesterol Level 155 mg/dL (< 200) HDL Cholesterol 40 mg/dL (40-59) Triglycerides Level 85 mg/dL (< 150) HgA1c, TSH Test 07/31/24 05:25 Thyroid Stimulating Hormone (TSH) 0.42 uIU/mL (0.55-4.78) L Urinalysis Test 07/31/24 09:00 Urine Color Light-yellow (Yellow) Urine Clarity Clear (Clear) Urine pH 5.5 (5.0-9.0) Urine Specific [place] 1.017 (1.001-1.035) Urine Protein Negative (Negative) Urine Ketones Negative (Negative) Urine Blood Negative /uL (Negative) Urine Nitrite Negative (Negative) Urine Bilirubin Negative (Negative) Urine Urobilinogen Normal mg/dL (Negative) Urine Leukocyte Esterase Negative /uL (Negative) Urine RBC 1 /hpf (0 - 3) Urine Microscopic WBC < 1 /HPF (0-3) Urine Squamous Epithelial Cells None seen /hpf (<5) Urine Bacteria None seen /hpf (None Seen) Urine Glucose 3+ mg/dL (Normal) H Microbiology Microbiology Date/Time Source Procedure Growth Status 07/29/24 11:23 Blood Blood Culture - Preliminary NO GROWTH AFTER 24 HOURS OF INCUBATION. Resulted Assessment/Plan Assessment/Plan Acute hypoxic respiratory failure COPD exacerbation Bilateral pneumonia Hypertension Type 2 diabetes Obesity COPD Mixed hyperlipidemia Ventricular tachycardia Plan Oxygen Med neb treatments IV antibiotics IV steroids Sputum culture Resume the home medications Amlodipine Lipitor Metoprolol Cardiology consult Echocardiogram Lasix Monitor closely Full code Advance directives and plan of care discussed for 15 minute 07/31/2024: Continue IV antibiotics Continue steroids Oxygen as needed Med neb treatments as needed Plan discussed with: Patient My Orders Orders - RODRI CHAN MD Procedure Category Date Status Time * Cardiology Consult CONS 07/30/24 Transmitted 14:35 Respiratory Culture ALVINA 07/30/24 In Process W/ Gs 14:35 Date of Service: Jul 31, 2024 Billing Provider: RODRI CHAN MD Common Visit Codes: [id number] INP/OBS CARE(HIGH) RODRI CHAN MD Jul 31, 2024 09:56
[2024-07-31 10:03] LABS: Amphetamine Screen, Urine Neg (NEGATIVE); Barbiturate Scree,Urine Neg (NEGATIVE); Benzodiazephine Screen, Urine Neg (NEGATIVE); Cannabinoid Screen, Urine Neg (NEGATIVE); Cocaine Screen, Urine Neg (NEGATIVE); Opiate Scree,Urine Neg (NEGATIVE); Phencyclidine Screen, Urine Neg (NEGATIVE)
[2024-07-31 10:32] LABS: Free T4 (Free Thyroxine) 0.72 ng/dL (0.89-1.76); T3 Total 0.62 ng/mL (0.60-1.81)
[2024-07-31] MEDS: METOPROLOL SUCCINATE XL 50 MG TAB PO SCH (10:41)
[2024-07-31] MEDS: DOXYCYCLINE 100MG/100ML 100 ML IV SCH (10:42)
[2024-07-31 10:49] LABS: Chloride 106 mmol/L (98-107); Potassium 4.6 mmol/L (3.5-5.1); Sodium 139 mmol/L (136-145)
[2024-07-31 10:50] LABS: Anion Gap 11 (5-15); Calcium 9.5 mg/dL (8.7-10.4); Carbon Dioxide 22 mmol/L (20-31)
[2024-07-31 10:55] LABS: BUN/Creatinine Ratio 22.9 (10.0-20.0)
[2024-07-31 10:56] LABS: Magnesium 2.2 mg/dL (1.6-2.6)
[2024-07-31 11:00] LABS: Blood Urea Nitrogen 24 mg/dL (9-23); Glucose 292 mg/dL (74-106)
--- NOTE | 2024-07-31 14:42 | DVHPN2 ---
Progress Note Date Seen: Jul 31, 2024 Resident Creating Document: TALIA MORSE RESIDENT Medical Necessity Reason Pt with a Central, PICC or Fol: No Subjective Review of Systems On my assessment, patient states feeling well, he is still on nasal cannula at 2 L, saturating well above 92%, we will put the patient on room air, heart rate was in the 80s, BP was 140/80. Objective vital signs Vital Sign Date Time Temp Pulse Resp B/P (MAP) Pulse Ox O2 Delivery O2 Flow Rate FiO2 07/31/24 13:00 97.9 81 19 147/84 (105) 91 97.9 07/31/24 12:27 Nasal Cannula* 1 24 Total Intake and Output 07/30/24 07/30/24 07/31/24 15:00 23:00 07:00 Intake Total 700 ml 1100 ml Output Total 1150 ml Balance 700 ml -50 ml medications Current Medications Medications Dose Ordered Sig/Deon Route Start Time Stop Time Status Last Admin Dose Admin Sodium Chloride 10 ml Q8HR IV 07/29/24 22:00 07/31/24 06:21 10 ML Acetaminophen/ Hydrocodone Bitart 1 tab Q4HP PRN PO 07/29/24 14:15 Ondansetron HCl 4 mg Q4HP PRN IV 07/29/24 14:15 Docusate Sodium 100 mg BIDPRN PRN PO 07/29/24 14:15 Acetaminophen 650 mg Q6HP PRN PO 07/29/24 14:15 Nitroglycerin 0.4 mg Q5MINP PRN SL 07/29/24 14:15 Morphine Sulfate 2 mg Q30M PRN IV 07/29/24 14:15 Methylprednisolone Sodium Succinate 40 mg BID IV 07/29/24 22:00 07/31/24 10:38 40 MG Ipratropium [place] 0.5 mg Q6HWA NEB 07/29/24 18:00 07/31/24 12:27 0.5 MG Ceftriaxone Sodium 50 ml @ 100 mls/hr DAILY@09 IV 07/30/24 09:00 07/31/24 09:04 100 MLS/HR Diagnostic Test (Pha) 1 strip ACHS 07/29/24 17:00 07/31/24 12:47 1 STRIP Insulin Human Regular HS SC 07/29/24 22:00 07/30/24 22:15 8 UNITS Insulin Human Regular AC SC 07/29/24 17:00 07/31/24 12:46 9 UNITS Dextrose 50 ml UD PRN IV 07/29/24 14:15 Allopurinol 100 mg DAILY PO 07/30/24 10:00 07/31/24 10:40 100 MG Furosemide 40 mg DAILY PO 07/30/24 10:00 07/31/24 10:40 40 MG Amlodipine Besylate 10 mg DAILY PO 07/30/24 10:00 07/31/24 10:39 10 MG Atorvastatin Calcium 40 mg HS PO 07/29/24 22:00 07/30/24 21:53 40 MG Patient Own Medication 1 puff BID PO 07/29/24 22:00 07/31/24 12:44 1 PUFF Metoprolol Succinate 50 mg DAILY PO 07/31/24 10:00 07/31/24 10:41 50 MG Levalbuterol HCl 1.25 mg Q6HWA NEB 07/31/24 06:00 07/31/24 12:27 1.25 MG Doxycycline Hyclate 100 ml @ 50 mls/hr Q12H IV 07/31/24 10:00 07/31/24 10:42 50 MLS/HR Examination General: Awake, alert, comfortable appearing, in no acute distress. HEENT: Head is normocephalic and atraumatic. Pupils are equal, round, and reactive to light. Extraocular muscles are intact. No nasal discharge. No facial trauma. Intraoral exam shows moist mucous membranes with no tonsillar enlargement or exudate. Neck: Supple with no cervical lymphadenopathy No meningismus. No goiter. Heart: Regular rate without murmur, rub, or gallop. Lungs: Bilateral scattered crackles, mild wheezing Abdomen: No external sign of injury. Bowel sounds are present. Abdomen is soft, nontender. No rebound, no guarding, no rigidity. There are no palpable masses. There is no flank pain on exam. Extremities: Strong peripheral pulses. There is no clubbing, no cyanosis, and no edema. Skin: No rash. Neurologic: Cranial nerves II-XII intact without motor, sensory, or cerebellar deficit, no asterixis. laboratory and microbiology Laboratory Tests 07/31/24 05:25 07/30/24 05:42 Test 07/31/24 05:25 Range/Units Serum Glucose 292 H 74-106 mg/dL Microbiology Date/Time Source Procedure Growth Status 07/30/24 16:35 Sputum Gram Stain - Final Resulted 07/30/24 16:35 Sputum Respiratory Culture - Preliminary Resulted 07/29/24 11:23 Blood Blood Culture - Preliminary NO GROWTH AFTER 48 HOURS OF INCUBATION. Resulted Labs and/or images reviewed: Labs reviewed by me, Image(s) reviewed by me Problem List/Assessment/Plan Problem List/Assessment/Plan Nonsustained ventricular tachycardia, asymptomatic Prolonged QT Aortic stenosis, severe Pneumonia, Gram-positive versus Gram-negative COPD exacerbation Acute hypoxic respiratory failure NSTEMI likely type 2 due to above Hypertension Type 2 diabetes Obesity Mixed dyslipidemia Plan/Recommendation Continue metoprolol to 50 mg p.o. q.d. Maintain potassium above 4 and magnesium above 2 Continue monitoring through telemetry Avoid QT prolonging medications V-tach could be related to hypoxia, ischemia, or underlying structural heart disease, we will consider further cardiac work up depending on clinical course Pending echocardiogram, it demonstrates severe aortic stenosis, EF 35-40%. Patient was offered [facility] for work up of his aortic stenosis, however, he stated that he has been seeing a customer service dispatcher in [place] for many years and will follow up with him. Patient current symptoms are likely related to his underlying lung infection. Case was discussed with Dr. Deshpande Plan discussed with: Patient, Other (RN) My Orders My Orders Orders - TALIA MORSE RESIDENT Procedure Category Date Status Time Metoprolol Xl PHA 07/31/24 In Process Succinate (Toprol Xl) 10:00 Levalbuterol Hcl PHA 07/31/24 In Process (Xopenex Medneb) 06:00 Doxycycline PHA 07/31/24 In Process 100mg/100ml 10:00 TALIA MORSE RESIDENT Jul 31, 2024 14:42
--- NOTE | 2024-07-31 20:21 | DVHSR ---
APPROVED REPORT EXAM: Two-dimensional and M-mode echocardiogram with Doppler and color Doppler. Blood Pressure: 129/70 mmHg INDICATION Shortness of breath RISK FACTORS Height: 68, Weight: 225 DIMENSIONS LVDd5.3 (3.8-5.7cm)LA (2D)5.2 (1.9-4.0cm)Aortic Root3.0 (2.0-3.7cm) LVDs4.1 (2.5-4.0cm)LA (MM) (1.9-4.0cm)Aortic Cusp Exc0.7 (1.5-2.0cm) EF (%) 45.0 (55-70%)Rt. Atrium3.6 (1.9-4.0cm)Asc. Aorta cm IVSd1.4 (0.7-1.1cm)RV (D) (1.8-2.4cm) PWd1.5 (0.7-1.1cm) Mitral Valve MitralMitral Stenosis E wave1.38m/sMV Mean GR.5mmHg A wave0.90m/sMV Peak GR.31mmHg E/A ratio1.52D MVAcm2 DECEL [id number] 1/2 [place] Aortic Valve Aortic ValveAortic Stenosis V11.01m/[place] Mean GR.28mmHg V23.43m/[place] Peak GR.47mmHg LVOT Diameter2.0 (1.8-2.4cm)Doppler AVA0.92cm2 Pulmonic Valve V20.99m/s Other Information Technically limited study due to body habitus. Conclusion Technically good study. Sinus rhythm. Left atrial enlargement. Mild LV enlargement. Mild mitral annular calcification. Mild aortic sclerosis, Left ventricular function is preserved at 60% with normal RV function. Dopplers unremarkable. No pericardial effusion masses or vegetations.
[2024-08-01] VITALS (15 sets, daily range): BP systolic 133–159; BP diastolic 63–96; PULSE 64–91; RESP 15–22; TEMP 97.5–98.1; O2SAT 92–100
--- NOTE | 2024-08-01 11:45 | DVHPN2 ---
Subjective Better less wheezing On only 1 L nasal cannula Echocardiogram showed severe aortic stenosis Changes from previous H/P or p: Changes Eyes: No Pain, No Vision change, No Conjunctivae inflammation, No Eyelid inflammation, No Other, No Redness ENT: No Ear pain, No Ear discharge, No Nose pain, No Nose discharge, No Nose congestion, No Mouth pain, No Mouth swelling, No Throat pain, No Throat swelling, No Other Cardiovascular: No Chest Pain, No Palpitations, No Orthopnea, No Paroxysmal Noc. Dyspnea, No Edema, No Lt Headedness, No Other Respiratory: Cough; No Dry; Shortness of breath, SOB with excertion, Wheezing; No Hemoptysis, No Pleuritic Pain; Sputum; No Other Gastrointestinal: No Nausea, No Vomiting, No Abdominal Pain, No Diarrhea, No Constipation, No Melena, No Hematochezia, No Other Genitourinary: No Dysuria, No Frequency, No Incontinence, No Hematuria, No Retention, No Other Musculoskeletal: No other, No neck pain, No shoulder pain, No arm pain, No back pain, No hand pain, No leg pain, No foot pain Skin: No Rash, No Lesions, No Jaundice, No Bruising, No Other Objective Vitals Vital Signs Date Time Temp Pulse Resp B/P (MAP) Pulse Ox O2 Delivery O2 Flow Rate FiO2 08/01/24 09:31 159/96 08/01/24 09:30 69 08/01/24 08:50 97.5 19 99 97.5 08/01/24 07:04 Nasal Cannula* 1 24 Intake/Output Intake and Output 08/01/24 07:00 Intake Total 2350 ml Output Total 902 ml Balance 1448 ml Intake Oral 2300 ml IV Total 50 ml Output Urine Total 902 ml General Appearance: Alert, Oriented X3, Cooperative, moderate distress Lungs: Other (Diffuse wheezing bilaterally) Cardiovascular: Regular rate, Normal S1, Normal S2 Abdomen: Normal bowel sounds, Soft, No tenderness Extremities: No edema Medications Current Medications Medications Dose Ordered Sig/Deon Route Start Time Stop Time Status Last Admin Dose Admin Sodium Chloride 10 ml Q8HR IV 07/29/24 22:00 08/01/24 06:33 10 ML Acetaminophen/ Hydrocodone Bitart 1 tab Q4HP PRN PO 07/29/24 14:15 Ondansetron HCl 4 mg Q4HP PRN IV 07/29/24 14:15 Docusate Sodium 100 mg BIDPRN PRN PO 07/29/24 14:15 Acetaminophen 650 mg Q6HP PRN PO 07/29/24 14:15 Nitroglycerin 0.4 mg Q5MINP PRN SL 07/29/24 14:15 Morphine Sulfate 2 mg Q30M PRN IV 07/29/24 14:15 Methylprednisolone Sodium Succinate 40 mg BID IV 07/29/24 22:00 08/01/24 09:29 40 MG Ipratropium [place] 0.5 mg Q6HWA NEB 07/29/24 18:00 08/01/24 07:04 0.5 MG Ceftriaxone Sodium 50 ml @ 100 mls/hr DAILY@09 IV 07/30/24 09:00 08/01/24 09:31 100 MLS/HR Diagnostic Test (Pha) 1 strip ACHS 07/29/24 17:00 08/01/24 05:34 1 STRIP Insulin Human Regular HS SC 07/29/24 22:00 07/31/24 21:01 8 UNITS Insulin Human Regular AC SC 07/29/24 17:00 08/01/24 05:32 9 UNITS Dextrose 50 ml UD PRN IV 07/29/24 14:15 Allopurinol 100 mg DAILY PO 07/30/24 10:00 08/01/24 09:30 100 MG Furosemide 40 mg DAILY PO 07/30/24 10:00 08/01/24 09:31 40 MG Amlodipine Besylate 10 mg DAILY PO 07/30/24 10:00 08/01/24 09:29 10 MG Atorvastatin Calcium 40 mg HS PO 07/29/24 22:00 07/31/24 20:49 40 MG Patient Own Medication 1 puff BID PO 07/29/24 22:00 08/01/24 10:26 1 PUFF Metoprolol Succinate 50 mg DAILY PO 07/31/24 10:00 08/01/24 09:30 50 MG Levalbuterol HCl 1.25 mg Q6HWA NEB 07/31/24 06:00 08/01/24 07:04 1.25 MG Doxycycline Hyclate 100 ml @ 50 mls/hr Q12H IV 07/31/24 10:00 08/01/24 10:53 50 MLS/HR Laboratory Results Laboratory Tests 07/30/24 05:42 07/31/24 05:25 Urinalysis Test 07/31/24 09:00 Urine Color Light-yellow (Yellow) Urine Clarity Clear (Clear) Urine pH 5.5 (5.0-9.0) Urine Specific [place] 1.017 (1.001-1.035) Urine Protein Negative (Negative) Urine Ketones Negative (Negative) Urine Blood Negative /uL (Negative) Urine Nitrite Negative (Negative) Urine Bilirubin Negative (Negative) Urine Urobilinogen Normal mg/dL (Negative) Urine Leukocyte Esterase Negative /uL (Negative) Urine RBC 1 /hpf (0 - 3) Urine Microscopic WBC < 1 /HPF (0-3) Urine Squamous Epithelial Cells None seen /hpf (<5) Urine Bacteria None seen /hpf (None Seen) Urine Glucose 3+ mg/dL (Normal) H Microbiology Microbiology Date/Time Source Procedure Growth Status 07/30/24 16:35 Sputum Gram Stain - Final Resulted 07/30/24 16:35 Sputum Respiratory Culture - Preliminary Resulted 07/29/24 11:23 Blood Blood Culture - Preliminary NO GROWTH AFTER 72 HOURS OF INCUBATION. Resulted Assessment/Plan Assessment/Plan Acute hypoxic respiratory failure COPD exacerbation Bilateral pneumonia Hypertension Type 2 diabetes Obesity COPD Mixed hyperlipidemia Ventricular tachycardia Severe aortic stenosis Plan Oxygen Med neb treatments IV antibiotics IV steroids Sputum culture Resume the home medications Amlodipine Lipitor Metoprolol Cardiology consult Echocardiogram Lasix Monitor closely Full code Advance directives and plan of care discussed for 15 minute 07/31/2024: Continue IV antibiotics Continue steroids Oxygen as needed Med neb treatments as needed 08/01/2024: Echocardiogram showed severe aortic stenosis ejection fraction 45% He is doing better Less wheezing Continue the current management for 1 more day in the hospital Order physical therapy Out of bed as tolerated Discharge planning for tomorrow The patient lives in [place], he will go back there to follow up with his doctors Plan discussed with: Patient Date of Service: Aug 01, 2024 Billing Provider: RODRI CHAN MD Common Visit Codes: [id number] INP/OBS CARE(HIGH) RODRI CHAN MD Aug 01, 2024 11:45
--- NOTE | 2024-08-01 18:01 | DVHPN2 ---
Progress Note Date Seen: Aug 01, 2024 Resident Creating Document: TALIA MORSE RESIDENT Medical Necessity Reason Pt with a Central, PICC or Fol: No Subjective Review of Systems On my assessment, patient states feeling well, he is still on nasal cannula at 1 L, saturating well above 92%, heart rate was in the 80s, BP was 130/60. Objective vital signs Vital Sign Date Time Temp Pulse Resp B/P (MAP) Pulse Ox O2 Delivery O2 Flow Rate FiO2 08/01/24 16:47 98.1 64 19 135/63 (87) 92 98.1 08/01/24 15:29 0.0 21 08/01/24 12:13 Room Air* Total Intake and Output 07/31/24 07/31/24 08/01/24 15:00 23:00 07:00 Intake Total 510 ml 1040 ml 800 ml Output Total 900 ml 2 ml Balance 510 ml 140 ml 798 ml medications Current Medications Medications Dose Ordered Sig/Deon Route Start Time Stop Time Status Last Admin Dose Admin Sodium Chloride 10 ml Q8HR IV 07/29/24 22:00 08/01/24 14:00 10 ML Acetaminophen/ Hydrocodone Bitart 1 tab Q4HP PRN PO 07/29/24 14:15 Ondansetron HCl 4 mg Q4HP PRN IV 07/29/24 14:15 Docusate Sodium 100 mg BIDPRN PRN PO 07/29/24 14:15 Acetaminophen 650 mg Q6HP PRN PO 07/29/24 14:15 Nitroglycerin 0.4 mg Q5MINP PRN SL 07/29/24 14:15 Morphine Sulfate 2 mg Q30M PRN IV 07/29/24 14:15 Methylprednisolone Sodium Succinate 40 mg BID IV 07/29/24 22:00 08/01/24 09:29 40 MG Ipratropium [place] 0.5 mg Q6HWA NEB 07/29/24 18:00 08/01/24 12:13 0.5 MG Ceftriaxone Sodium 50 ml @ 100 mls/hr DAILY@09 IV 07/30/24 09:00 08/01/24 09:31 100 MLS/HR Diagnostic Test (Pha) 1 strip ACHS 07/29/24 17:00 08/01/24 17:52 1 STRIP Insulin Human Regular HS SC 07/29/24 22:00 07/31/24 21:01 8 UNITS Insulin Human Regular AC SC 07/29/24 17:00 08/01/24 17:53 15 UNITS Dextrose 50 ml UD PRN IV 07/29/24 14:15 Allopurinol 100 mg DAILY PO 07/30/24 10:00 08/01/24 09:30 100 MG Furosemide 40 mg DAILY PO 07/30/24 10:00 08/01/24 09:31 40 MG Amlodipine Besylate 10 mg DAILY PO 07/30/24 10:00 08/01/24 09:29 10 MG Atorvastatin Calcium 40 mg HS PO 07/29/24 22:00 07/31/24 20:49 40 MG Patient Own Medication 1 puff BID PO 07/29/24 22:00 08/01/24 10:26 1 PUFF Metoprolol Succinate 50 mg DAILY PO 07/31/24 10:00 08/01/24 09:30 50 MG Levalbuterol HCl 1.25 mg Q6HWA NEB 07/31/24 06:00 08/01/24 12:13 1.25 MG Doxycycline Hyclate 100 ml @ 50 mls/hr Q12H IV 07/31/24 10:00 08/01/24 10:53 50 MLS/HR Examination General: Awake, alert, comfortable appearing, in no acute distress. HEENT: Head is normocephalic and atraumatic. Pupils are equal, round, and reactive to light. Extraocular muscles are intact. No nasal discharge. No facial trauma. Intraoral exam shows moist mucous membranes with no tonsillar enlargement or exudate. Neck: Supple with no cervical lymphadenopathy No meningismus. No goiter. Heart: Regular rate without murmur, rub, or gallop. Lungs: Bilateral scattered crackles, mild wheezing Abdomen: No external sign of injury. Bowel sounds are present. Abdomen is soft, nontender. No rebound, no guarding, no rigidity. There are no palpable masses. There is no flank pain on exam. Extremities: Strong peripheral pulses. There is no clubbing, no cyanosis, and no edema. Skin: No rash. Neurologic: Cranial nerves II-XII intact without motor, sensory, or cerebellar deficit, no asterixis. laboratory and microbiology Laboratory Tests 07/31/24 05:25 07/30/24 05:42 Test 2/26/25 05:25 Range/Units Serum Glucose 292 H 74-106 mg/dL Microbiology Date/Time Source Procedure Growth Status 07/30/24 16:35 Sputum Gram Stain - Final Resulted 07/30/24 16:35 Sputum Respiratory Culture - Preliminary Resulted 07/29/24 11:23 Blood Blood Culture - Preliminary NO GROWTH AFTER 72 HOURS OF INCUBATION. Resulted Labs and/or images reviewed: Labs reviewed by me, Image(s) reviewed by me Problem List/Assessment/Plan Problem List/Assessment/Plan Nonsustained ventricular tachycardia, asymptomatic Prolonged QT Aortic stenosis, severe Pneumonia, Gram-positive versus Gram-negative COPD exacerbation Acute hypoxic respiratory failure NSTEMI likely type 2 due to above Hypertension Type 2 diabetes Obesity Mixed dyslipidemia Plan/Recommendation Continue metoprolol to 50 mg p.o. q.d. Maintain potassium above 4 and magnesium above 2 Continue monitoring through telemetry Avoid QT prolonging medications V-tach could be related to hypoxia, ischemia, or underlying structural heart disease. echocardiogram, it demonstrates severe aortic stenosis, EF 40-45%. Patient was offered [facility] for work up of his aortic stenosis, however, he stated that he has been seeing a cartridge assembling machine adjuster in [place] for many years and will follow up with him. Patient current symptoms are likely related to his underlying lung infection. Thank you for allowing us to participate in the care of this patient, patient may be discharged from cardiology standpoint. Case was discussed with Dr. Deshpande Plan discussed with: Patient, Other (RN) TALIA MORSE RESIDENT Aug 01, 2024 18:01
[2024-08-02] VITALS (11 sets, daily range): BP systolic 141–157; BP diastolic 66–97; PULSE 66–94; RESP 16–22; TEMP 97.4–98.1; O2SAT 91–100
[2024-08-02] MEDS ORDERED: METH4PAK PO (12:05)
[2024-08-02] MEDS ORDERED: DOXY1CAP57 PO (12:05)
--- NOTE | 2024-08-02 12:08 | DVHDS2 ---
Discharge Summary Date of Admission Jul 29, 2024 at 14:06 Date of Discharge: Aug 02, 2024 Labs/Diagnostic Data: Laboratory Results Test 08/02/24 05:57 07/31/24 09:00 07/31/24 05:25 07/30/24 05:42 POC Glucose 263 mg/dl (70-106) Urine Color Light-yellow (Yellow) Urine Clarity Clear (Clear) Urine pH 5.5 (5.0-9.0) Urine Specific [place] 1.017 (1.001-1.035) Urine Protein Negative (Negative) Urine Ketones Negative (Negative) Urine Blood Negative /uL (Negative) Urine Nitrite Negative (Negative) Urine Bilirubin Negative (Negative) Urine Urobilinogen Normal mg/dL (Negative) Urine Leukocyte Esterase Negative /uL (Negative) Urine RBC 1 /hpf (0 - 3) Urine Microscopic WBC < 1 /HPF (0-3) Urine Squamous Epithelial Cells None seen /hpf (<5) Urine Bacteria None seen /hpf (None Seen) Urine Glucose 3+ mg/dL (Normal) Urine Opiates Screen Neg (NEGATIVE) Urine Fentanyl Screen Neg (NEGATIVE) Urine Barbiturates Screen Neg (NEGATIVE) Urine Phencyclidine Screen Neg (NEGATIVE) Urine Amphetamines Screen Neg (NEGATIVE) Urine Benzodiazepines Screen Neg (NEGATIVE) Urine Cocaine Screen Neg (NEGATIVE) Urine Cannabinoids Screen Neg (NEGATIVE) Sodium Level 139 mmol/L (136-145) Potassium Level 4.6 mmol/L (3.5-5.1) Chloride Level 106 mmol/L (98-107) Carbon Dioxide Level 22 mmol/L (20-31) Anion Gap 11 (5-15) Blood Urea Nitrogen 24 mg/dL (9-23) Creatinine 1.05 mg/dL (0.700-1.30) Glomerular Filtration Rate Calc 77 mL/min (>90) BUN/Creatinine Ratio 22.9 (10.0-20.0) Serum Glucose 292 mg/dL (74-106) Calcium Level 9.5 mg/dL (8.7-10.4) Magnesium Level 2.2 mg/dL (1.6-2.6) Triglycerides Level 85 mg/dL (< 150) Cholesterol Level 155 mg/dL (< 200) LDL Cholesterol 97 mg/dL (< 100) HDL Cholesterol 40 mg/dL (40-59) Thyroid Stimulating Hormone (TSH) 0.42 uIU/mL (0.55-4.78) Free Thyroxine (T4) Calculated 0.72 ng/dL (0.89-1.76) Total Triiodothyronine (TT3) 0.62 ng/mL (0.60-1.81) White Blood Count 9.5 10^3/uL (4.4-10.8) Red Blood Count 4.50 10^6/uL (4.5-5.90) Hemoglobin 13.6 g/dL (13.5-17.5) Hematocrit 41.6 % (41.0-53.0) Mean Corpuscular Volume 92.4 fL (80.0-100.0) Mean Corpuscular Hemoglobin 30.2 pg (28.0-32.0) Mean Corpuscular Hemoglobin Concent 32.7 g/dL (32.0-36.0) Red Cell Distribution Width 14.0 % (11.8-14.3) Platelet Count 151 10^3/uL (140-450) Mean Platelet Volume 10.2 fL (6.9-10.8) Neutrophils (%) (Auto) 84.1 % (37.0-80.0) Lymphocytes (%) (Auto) 11.4 % (10.0-50.0) Monocytes (%) (Auto) 4.4 % (0.0-12.0) Eosinophils (%) (Auto) 0.0 % (0.0-7.0) Basophils (%) (Auto) 0.1 % (0.0-2.0) Neutrophils # (Auto) 8.0 10 ^3/uL (1.6-8.6) Lymphocytes # (Auto) 1.1 10 ^3/uL (0.4-5.4) Monocytes # (Auto) 0.4 10 ^3/uL (0-1.3) Eosinophils # (Auto) 0 10 ^3/uL (0-0.8) Basophils # (Auto) 0 10 ^3/uL (0-0.2) Nucleated Red Blood Cells 0.0 % Hemoglobin A1c 8.7 % A1C (<5.7) Total Bilirubin 0.6 mg/dL (0.2-1.0) Aspartate Amino Transferase (AST) 11 U/L (13-40) Alanine Aminotransferase (ALT) 25 U/L (7-40) Alkaline Phosphatase 79 U/L (46-116) Total Protein 6.9 g/dL (5.7-8.2) Albumin 4.3 g/dL (3.2-4.8) Test 07/29/24 14:17 07/29/24 13:51 07/29/24 11:23 07/29/24 10:13 Influenza Type A Antigen Negative (Negative) Influenza Type B Antigen Negative (Negative) SARS-CoV-2 Antigen (Rapid) Negative (NEGATIVE) Troponin I High Sensitivity 60 ng/L (</=54) Lactic Acid Level 1.4 mmol/L (0.4-2.0) B-Type Natriuretic Peptide 91.62 pg/mL (0-100) Other Laboratory Tests 07/31/24 05:25 07/30/24 05:42 Brief Hx & Hospital Course: Final diagnoses: Acute hypoxic respiratory failure COPD exacerbation Bilateral pneumonia Hypertension Type 2 diabetes Obesity COPD Mixed hyperlipidemia Ventricular tachycardia Severe aortic stenosis 69-year-old male who was admitted for upper respiratory infection and was found to have bilateral pneumonia He had edema in his legs and COPD He was evaluated by Cardiology with an echocardiogram which showed severe to moderate aortic sclerosis and an ejection fraction of 40-45% He was treated for the upper respiratory infection with IV antibiotics and oxygen and med neb treatments and steroids and he is feeling better and he is on room air now Regarding his aortic stenosis he will need to follow up as an outpatient He lives in [facility] and therefore he will go back to his regular doctors there to follow up regarding his aortic valve which has a calculated valve area of 0.97 cm2 indicated severe aortic stenosis He is asymptomatic now and therefore he is stable for discharge He will be discharged on doxycycline and Medrol Dosepak and resume other home medication Condition at Discharge: Stable Final Diagnosis/Problems List Acute hypoxic respiratory failure COPD exacerbation Bilateral pneumonia Hypertension Type 2 diabetes Obesity COPD Mixed hyperlipidemia Ventricular tachycardia Severe aortic stenosis Discharge Disposition: Home SNF Discharge Will this Physician continue t: No Discharge Statement: "Patient was advised to return to the ER or call 911 if any headaches, dizziness, shortness of breath, chest pain, abdominal pain, bleeding, fevers, or worsening of medical condition. Patient was counseled about treatment plan, medications, possible side effects, patientverbalized understanding. All questions were answered to the best of my ability. This discharge took greater then 30 minutes in planning, reviewing documentation, counseling the patient, and discussing with other team members." ASSESSMENT ASSESSMENT Assessment Date of Service: Aug 02, 2024 Billing Provider: RODRI CHAN MD Common Visit Codes: [id number] DISCH DAY >30min RODRI CHAN MD Aug 02, 2024 12:08
== END 2024-08-02 14:28 | disposition home or self-care (01) | DRG 280 ==
LOC: ER 09:35 → OVERFLOW 14:06 → TELE-EAST 16:00
PROVIDERS: ADMIT Internal Medicine Geriatric Medicine; ATTEND Internal Medicine Geriatric Medicine
DX: I21.4 Non-ST elevation (NSTEMI) myocardial infarction (principal); J18.9 Pneumonia, unspecified organism; J96.21 Acute and chronic respiratory failure with hypoxia; J44.1 Chronic obstructive pulmonary disease with (acute) exacerbation; I47.20 Ventricular tachycardia, unspecified; J44.0 Chronic obstructive pulmonary disease with (acute) lower respiratory infection; Z20.822 Contact with and (suspected) exposure to COVID-19; M10.9 Gout, unspecified; I10 Essential (primary) hypertension; E78.2 Mixed hyperlipidemia; E66.9 Obesity, unspecified; I70.0 Atherosclerosis of aorta; I35.0 Nonrheumatic aortic (valve) stenosis; E11.9 Type 2 diabetes mellitus without complications; Z83.3 Family history of diabetes mellitus; Z87.891 Personal history of nicotine dependence; Z79.4 Long term (current) use of insulin; Z79.899 Other long term (current) drug therapy
CPT/HCPCS: 36415; 71046; 80048; 80053; 80061; 80307; 81001; 82962; 83036; 83605; 83735; 83880; 84439; 84443; 84480; 84484; 85025; 87040; 87070; 87077; 87186; 87205; 87426; 87804; 93005; 93306; 94640; 97163; 99291; G0378; J0692; J1815; J2405